=== PATIENT | female | born 1950 | race Caucasian/White ===

== ENCOUNTER 2018-05-11 17:23 | Emergency (ER) | payer OTHER ==
[2018-05-11 17:46] VITALS: BP 146/102
--- NOTE | 2018-05-11 17:54 | UC ---
Abdominal Pain Female HPI - HPI Summary HPI Summary: Patient is 67 year old woman who present today with abdominal pain for past 2 days. She c/o lower abdominal pain ( right and left lower quadrant) since yesterday. She states a hx of IBS with constipation. Yesterday, she started with lower abdominal pain and pressure that radiates to her back. She states a hx of diverticuloses( diagnosed on colonoscopy ) as well. Denies fever. She does state urinary frequency and urgency without any dysuria. Last BM was today. Overall getting worse to the point that she is not able to tolerate car ride and every bump aggravates her pain . She is able to tolerate fluid and food by mouth . No sick contacts . Denies any fever, chills, cough chest pain or shortness of breath . Denies any diarrhea today , had nausea but no vomiting. Denies any GI bleeding Has not had any treatment so far . She takes keflex every day for her scalp infection prevention. - History of Current Complaint Chief Complaint: UCAbdominalPain Stated Complaint: ABDOMINAL PAIN Time Seen by Provider: 05/11/18 17:47 Hx Obtained From: Patient Hx Last Menstrual Period: n/a Pain Intensity: 8 Allergies/Adverse Reactions: Allergies Allergy/AdvReac Type Severity Reaction Status Date / Time tetracycline Allergy Rash Verified 05/11/18 17:31 Home Medications: Home Medications L.acidoph,Paracasei, B.lactis [Probiotic] 1 each PO DAILY 05/11/18 [History Confirmed 05/11/18] Linaclotide [Linzess] 72 mcg PO DAILY PRN 05/11/18 [History Confirmed 05/11/18] Tumerick 2 tab PO DAILY 05/11/18 [History Confirmed 05/11/18] PMH/Surg Hx/FS Hx/Imm Hx Previously Healthy: Yes Endocrine History: Diabetes - prediabetes, does not take any medications., Dyslipidemia Other Endocrine History: negative Other Cardiovascular History: negative Other Respiratory History: negative GI/ History: Gastroesophageal Reflux, Other - Irritable bowel syndrome. Diverticuloses noted on recent colonoscopy . Other GI/ History: negativenegative Neurological History: Other - neuropathy Other Neurological History: negative Other Psychological History: negative Other Cancer History: negative - Surgical History Surgical History: Yes Surgery Procedure, Year, and Place: TUBAL LIGATION, LEFT BREAST FIBROID TUMOR REMOVED. BILATERAL KNEE REPLACMENT, BONIONECTOMY. LEFT OVARY REMOVED. right foot fracture - Family History Known Family History: Positive: None - Social History Alcohol Use: Rare Substance Use Type: None Smoking Status (MU): Never Smoked Tobacco - Immunization History Most Recent Influenza Vaccination: FALL 2013 Review of Systems Constitutional: Fever Skin: Negative Eyes: Negative ENT: Negative Respiratory: Negative Cardiovascular: Negative Gastrointestinal: Abdominal Pain, Nausea Genitourinary: Frequency, Urgency Motor: Negative Neurovascular: Negative Musculoskeletal: Negative Neurological: Negative Psychological: Negative Is Patient Immunocompromised?: No All Other Systems Reviewed And Are Negative: Yes Physical Exam - Summary Physical Exam Summary: Physical Exam: Const: Appears well. No signs of apparent distress present. Alert and oriented x 3. Musculo: Walks with a normal gait. Head/Face: Atraumatic, normocephalic on inspection. Eyes: EOMI and PERRLA in both eyes. Conjunctivae clear. No discharge noted ENT: Hearing normal, TM normal appearing bilaterally . Respiratory: Respirations are unlabored. Lungs clear to auscultation bilaterally, no wheezing , rhonchi or rales noted . CVS: Regular rate and Rhythm, S1S2 normal , no murmurs identified. Extremities: Peripheral circulation is grossly normal. Pulses 2+ Abdomen : Soft there is tender to palpation in right and left lower quadrant .nondistended , Bowel sounds present . No Mild guarding , but no rebound tenderness or rigidity noted. Mild bilateral CVA tenderness. Skin: No lesions or rash located on the upper extremities or on the lower extremities. Neuro: Cranial nerves II to XII intact, motor and sensory intact. DTR Intact bilaterally. Mood is normal. Affect is normal. Triage Information Reviewed: Yes Vital Signs: Initial Vital Signs Temp 100.2 F 05/11/18 17:33 Pulse 96 05/11/18 17:33 Resp 18 05/11/18 17:33 BP 146/102 05/11/18 17:33 Pulse Ox 99 05/11/18 17:33 Vital Signs Reviewed: Yes Abd Pain Female Course/Dx - Course Course Of Treatment: During the visit today, we obtained UA which was negative for leucs or nitrites but it was positive for trace blood. She is febrile in clinic. We discussed the findings and further plan to have her go to ER for further evaluation with lab and imaging . Patient expressed understanding , her will drive her to the hospital , Report called to [facility] and I spoke to Christi. - Differential Dx/Diagnosis Provider Diagnoses: Diverticulitis. Pyelonehritis. Renal stone Discharge - Sign-Out/Discharge Documenting (check all that apply): Patient Departure - Discharge Plan Condition: Stable Disposition: HOME-RECOMMEND TO ED Patient Education Materials: Diverticulitis (ED), Urinary Tract Infection in Women (ED), Kidney Infection (ED) Referrals: Jessica Mike MD [Primary Care Provider] - Additional Instructions: Please go to the emergency room for lab work and imaging and further management. I have called to report to [facility] and spoke to Christi. Patients blood pressure slightly high in Urgent care today , plan follow up with PCP for better control - Billing Disposition and Condition Condition: STABLE Disposition: Home-Recommend to ED
== END 2018-05-11 18:30 | disposition home health service (06) ==
LOC: UCCORT 17:23
DX: K57.92 Diverticulitis of intestine, part unspecified, without perforation or abscess without bleeding (principal); N12 Tubulo-interstitial nephritis, not specified as acute or chronic; R73.03 Prediabetes; Z88.1 Allergy status to other antibiotic agents; K58.9 Irritable bowel syndrome, unspecified; N20.0 Calculus of kidney
CPT/HCPCS: 81003; 87086; 99212; G0463

== ENCOUNTER 2018-10-15 18:44 | Emergency (ER) | payer OTHER ==
[2018-10-15 19:36] VITALS: BP 111/74
--- NOTE | 2018-10-15 20:00 | UC ---
UC General HPI - HPI Summary HPI Summary: on sunday, pt became ill with a cough that is ongoing which is making her abdominal mm's sore. sunday, pt had several bouts of diarrhea that resolved with Imodium. now pt is c/o bodyaches, weakness, nausea but no vomiting wheezing or sob. pt had a flu shot. - History of Current Complaint Chief Complaint: UCGeneralIllness Stated Complaint: COUGH,SORE THROAT,ABDOMINAL PAIN Time Seen by Provider: 10/15/18 19:36 Hx Obtained From: Patient Hx Last Menstrual Period: n/a Pain Intensity: 0 - Allergy/Home Medications Allergies/Adverse Reactions: Allergies Allergy/AdvReac Type Severity Reaction Status Date / Time tetracycline Allergy Rash Verified 10/15/18 19:27 Home Medications: Home Medications Atorvastatin* [Lipitor 10 MG*] 1 tab BEDTIME 10/15/18 [History Confirmed ] Cephalexin CAP* [Keflex 250 CAP*] 1 cap BID 10/15/18 [History Confirmed 10/15/18 ] Esomeprazole(NF) [Nexium(NF)] 1 tab DAILY 10/15/18 [History Confirmed 10/15/18] celeCOXIB CAP* [Celebrex CAP*] 1 cap BID 10/15/18 [History Confirmed 10/15/18] PMH/Surg Hx/FS Hx/Imm Hx - Additional Past Medical History Additional PMH: OA Endocrine History: Diabetes - borderline, Dyslipidemia Respiratory History: Asthma GI/ History: Gastroesophageal Reflux - Surgical History Surgical History: Yes Surgery Procedure, Year, and Place: TUBAL LIGATION, LEFT BREAST FIBROID TUMOR REMOVED. BILATERAL KNEE REPLACMENT, BONIONECTOMY. LEFT OVARY REMOVED. right foot fracture - Family History Known Family History: Positive: None - Social History Alcohol Use: Rare Substance Use Type: None Smoking Status (MU): Never Smoked Tobacco - Immunization History Most Recent Influenza Vaccination: FALL 2013 Vaccination Up to Date: Yes Review of Systems All Other Systems Reviewed And Are Negative: Yes Constitutional: Positive: Chills, Fatigue Skin: Positive: Negative Eyes: Positive: Negative ENT: Positive: Negative Respiratory: Positive: Cough. Negative: Shortness Of Breath Cardiovascular: Positive: Negative Gastrointestinal: Positive: Diarrhea, Nausea. Negative: Abdominal Pain, Vomiting Genitourinary: Negative: Dysuria Motor: Positive: Negative Neurovascular: Positive: Negative Musculoskeletal: Positive: Myalgia Neurological: Positive: Negative Psychological: Positive: Negative Is Patient Immunocompromised?: No Physical Exam Triage Information Reviewed: Yes Appearance: Well-Appearing Vital Signs: Initial Vital Signs Temp 98.6 F 10/15/18 19:23 Pulse 86 10/15/18 19:23 Resp 16 10/15/18 19:23 BP 111/74 10/15/18 19:23 Pulse Ox 98 10/15/18 19:23 Vital Signs Reviewed: Yes Eyes: Positive: Conjunctiva Clear ENT: Positive: Pharynx normal, TMs normal. Negative: Nasal congestion, Nasal drainage Neck: Positive: Supple, Nontender, No Lymphadenopathy Respiratory: Positive: Lungs clear, Normal breath sounds, No respiratory distress Cardiovascular: Positive: RRR, No Murmur. Negative: Tachycardia Abdomen Description: Positive: Nontender, No Organomegaly, Soft. Negative: Distended, Guarding Bowel Sounds: Positive: Present Musculoskeletal: Positive: ROM Intact Neurological: Positive: Alert Psychological: Positive: Age Appropriate Behavior Skin Exam: Normal Diagnostics - Radiology No standard instances Radiology Interpretation Completed By: ED Physician - WET READ=NAD - EKG Cardiac Rhythm: Sinus: New, AFib: New, Junctional: New, LBBB: New, Other Rhythm : New Re-Evaluation - Re-Evaluation First Eval Re-Evaluation Time: 20:57 Change: Improved - FEELING IMPROVED POST TX. Course/Dx - Course Course Of Treatment: INFLUENZA +, SINCE PT WORSENING WILL TX WITH TAMIFLU. - Diagnoses Provider Diagnosis: Influenza A Discharge - Sign-Out/Discharge Documenting (check all that apply): Patient Departure All imaging exams completed and their final reports reviewed: No - Discharge Plan Condition: Stable Disposition: HOME Prescriptions: Oseltamivir CAP* [Tamiflu CAP*] 75 mg PO BID 5 Days #10 cap Patient Education Materials: Influenza (ED) Referrals: Jessica Mike MD [Primary Care Provider] - Additional Instructions: FOLLOW UP WITH DR MIKE IN 5-7 DAYS FOR A RECHECK OR SOONER IF WORSE. - Billing Disposition and Condition Condition: STABLE Disposition: Home
[2018-10-15] MEDS ORDERED: Ondansetron ODT TAB* 4 MG PO ONE (20:04)
[2018-10-15] MEDS ORDERED: Acetaminophen TAB* 325 MG PO ONE (20:04)
[2018-10-15] MEDS ORDERED: Oseltamivir CAP* 75 MG CAP PO ONE (20:58)
--- NOTE | 2018-10-16 09:37 | UC ---
- EKG/XRAY/CT Xray Comments: wet read correct Re-Evaluation - Re-Evaluation First Eval Re-Evaluation Time: 20:57 Change: Improved - FEELING IMPROVED POST TX. Course/Dx - Diagnoses Provider Diagnoses: Influenza A Discharge - Sign-Out/Discharge Documenting (check all that apply): Post-Discharge Follow Up All imaging exams completed and their final reports reviewed: Yes - Discharge Plan Condition: Stable Disposition: HOME Prescriptions: Oseltamivir CAP* [Tamiflu CAP*] 75 mg PO BID 5 Days #10 cap Patient Education Materials: Influenza (ED) Referrals: Jessica Mike MD [Primary Care Provider] - Additional Instructions: FOLLOW UP WITH DR MIKE IN 5-7 DAYS FOR A RECHECK OR SOONER IF WORSE. - Billing Disposition and Condition Condition: STABLE Disposition: Home
== END 2018-10-15 21:07 | disposition home or self-care (01) ==
LOC: UCCORT 18:44
DX: J10.1 Influenza due to other identified influenza virus with other respiratory manifestations (principal); E78.5 Hyperlipidemia, unspecified; J45.909 Unspecified asthma, uncomplicated; K21.9 Gastro-esophageal reflux disease without esophagitis; Z88.1 Allergy status to other antibiotic agents; Z79.899 Other long term (current) drug therapy
CPT/HCPCS: 71046; 99212; A9270-GY; G0463

== ENCOUNTER 2018-10-25 20:18 | Emergency (ER) | payer OTHER ==
[2018-10-25 20:32] VITALS: BP 145/79
[2018-10-25] MEDS ORDERED: Albuterol 2.5 MG/3 ML NEB.SOL* (0.083%) INH ONE (20:35)
[2018-10-25] MEDS ORDERED: predniSONE TAB* 20 MG PO ONE (20:36)
--- NOTE | 2018-10-25 20:38 | UC ---
UC General HPI - HPI Summary HPI Summary: PT DX AND TX FOR FLU 10 DAYS AGO. SHE RETURNS FOR ONGOING COUGH, CHEST CONGESTION AND TIGHT LUNGS. PT STATES " I'M RAISING A LOT OF CRAP". NO COPD OR FEVER - History of Current Complaint Chief Complaint: UCRespiratory Stated Complaint: CHEST CONGESTION Time Seen by Provider: 10/25/18 20:28 Hx Obtained From: Patient Hx Last Menstrual Period: n/a Onset/Duration: Gradual Onset Timing: Constant Pain Intensity: 0 Associated Signs & Symptoms: Positive: Cough, SOB. Negative: Chest Pain, Fever - Allergy/Home Medications Allergies/Adverse Reactions: Allergies Allergy/AdvReac Type Severity Reaction Status Date / Time tetracycline Allergy Rash Verified 10/15/18 19:27 PMH/Surg Hx/FS Hx/Imm Hx - Additional Past Medical History Additional PMH: SLEEP DISTURBANCE Endocrine History: Diabetes, Dyslipidemia Respiratory History: Asthma GI/ History: Gastroesophageal Reflux - Surgical History Surgical History: Yes Surgery Procedure, Year, and Place: TUBAL LIGATION, LEFT BREAST FIBROID TUMOR REMOVED. BILATERAL KNEE REPLACMENT, BONIONECTOMY. LEFT OVARY REMOVED. right foot fracture - Family History Known Family History: Positive: None - Social History Alcohol Use: Rare Substance Use Type: None Smoking Status (MU): Never Smoked Tobacco - Immunization History Most Recent Influenza Vaccination: FALL 2013 Vaccination Up to Date: Yes Review of Systems All Other Systems Reviewed And Are Negative: Yes Constitutional: Positive: Negative Skin: Positive: Negative Eyes: Positive: Negative ENT: Positive: Negative Respiratory: Positive: Shortness Of Breath, Cough Cardiovascular: Negative: Palpitations, Chest Pain Gastrointestinal: Positive: Negative Genitourinary: Positive: Negative Motor: Positive: Negative Neurovascular: Positive: Negative Musculoskeletal: Positive: Negative Neurological: Positive: Negative Psychological: Positive: Negative Physical Exam Triage Information Reviewed: Yes Appearance: Well-Appearing Vital Signs: Initial Vital Signs Temp 98.4 F 10/25/18 20:27 Pulse 75 10/25/18 20:27 Resp 19 10/25/18 20:27 BP 145/79 10/25/18 20:27 Pulse Ox 98 10/25/18 20:27 Eye Exam: Normal Eyes: Positive: Conjunctiva Clear ENT: Positive: Pharynx normal. Negative: Nasal congestion, Nasal drainage Neck: Positive: Supple, Nontender, No Lymphadenopathy Respiratory: Positive: No respiratory distress, Decreased breath sounds, Other: - Frequent congested cough Cardiovascular: Positive: RRR, No Murmur Abdomen Description: Positive: Nontender, No Organomegaly, Soft Bowel Sounds: Positive: Present Musculoskeletal: Positive: ROM Intact, No Edema Neurological: Positive: Alert Psychological: Positive: Age Appropriate Behavior Skin Exam: Normal Diagnostics - Radiology No standard instances Radiology Interpretation Completed By: ED Physician - wet read=nad and no change 10/15/18 Re-Evaluation - Re-Evaluation First Eval Re-Evaluation Time: 21:15 Change: Improved - less cough and better aeration Course/Dx - Differential Dx - Multi-Symptom Differential Diagnoses: Other - pneumonia, bronchitis, asthma - Diagnoses Provider Diagnosis: Bronchitis, Asthma Discharge - Sign-Out/Discharge Documenting (check all that apply): Patient Departure All imaging exams completed and their final reports reviewed: No - Discharge Plan Condition: Stable Disposition: HOME Prescriptions: Albuterol HFA INHALER* [Ventolin HFA Inhaler*] 2 puff INH Q6H #1 mdi Amoxicillin/Clavulanate TAB* [Augmentin TAB 875*] 875 mg PO BID 7 Days #14 tab predniSONE [Prednisone 20 MG TAB] 40 mg PO DAILY 4 Days #8 tablet Patient Education Materials: Acute Bronchitis (ED), Asthma (DC) Referrals: Jessica Mike MD [Primary Care Provider] - 5 Days - Billing Disposition and Condition Condition: STABLE Disposition: Home
--- NOTE | 2018-10-26 12:54 | UC ---
- Progress Note Progress Note: xray report: "IMPRESSION: No active disease is noted. Focus of air in the cervical region which may represent a esophageal diverticulum. Clinical correlation is suggested. This is unchanged from October 15, 2018." _ will request nursing to staff to call pt to FU with PCP regarding possible esophageal pocket/divertiuculum. Re-Evaluation - Re-Evaluation First Eval Re-Evaluation Time: 21:15 Change: Improved - less cough and better aeration Course/Dx - Diagnoses Provider Diagnoses: Bronchitis, Asthma Discharge - Sign-Out/Discharge Documenting (check all that apply): Post-Discharge Follow Up All imaging exams completed and their final reports reviewed: Yes - Discharge Plan Condition: Stable Disposition: HOME Prescriptions: Albuterol HFA INHALER* [Ventolin HFA Inhaler*] 2 puff INH Q6H #1 mdi Amoxicillin/Clavulanate TAB* [Augmentin TAB 875*] 875 mg PO BID 7 Days #14 tab predniSONE [Prednisone 20 MG TAB] 40 mg PO DAILY 4 Days #8 tablet Patient Education Materials: Asthma (DC), Acute Bronchitis (ED) Referrals: Jessica Mike MD [Primary Care Provider] - 5 Days - Billing Disposition and Condition Condition: STABLE Disposition: Home
== END 2018-10-25 21:27 | disposition home or self-care (01) ==
LOC: UCCORT 20:18
DX: J45.909 Unspecified asthma, uncomplicated (principal); Z88.1 Allergy status to other antibiotic agents; Z96.653 Presence of artificial knee joint, bilateral; E11.9 Type 2 diabetes mellitus without complications
CPT/HCPCS: 71046; 99212; G0463; J7512